=== PATIENT | male | born 1970 ===

== ENCOUNTER 2017-02-10 17:38 | Emergency (ER) | payer OTHER ==
[2017-02-10] MEDS ORDERED: Albuterol-Ipratrop 3 mg / 0.5 (3 ml) UD INH STA (18:07)
[2017-02-10] MEDS ORDERED: Albuterol-Ipratrop 3 mg / 0.5 (3 ml) UD ONE (18:10)
--- NOTE | 2017-02-10 19:02 | ED PDOC ---
HPI: CCC, URI, Sore Throat Time Seen by Provider: 02/10/17 17:50 Chief Complaint (Nursing): Shortness Of Breath Chief Complaint (Provider): Cough History Per: Patient History/Exam Limitations: no limitations Onset/Duration Of Symptoms: Days (x2) Current Symptoms Are (Timing): Still Present Associated Symptoms: Cough, Sputum (white; no hemoptysis), Other (sweats, shortness of breath (today); no chest pain, leg swelling). denies: Fever, Chills, Sore Throat, Sinus Drainage Severity: Moderate Additional Complaint(s): Fausto Russell is a 46 year old male, with a past medical history inclusive of pneumonia (4 years ago) and intermittent episodes of bronchitis, who presents to the ED on 02/10/17 for the evaluation of a moderate cough, productive of white sputum, that he has experienced over the past 2 days. Associated shortness of breath (today) and sweats also reported, though he denies fever, chills, rhinorrhea, sore throat, chest pain, leg swelling, known sick contacts or recent travel. Has used mucinex with only transient relief (yesterday, none today). Of note, patient reports having experienced a similar array of symptoms 1 year ago, at which time he had been prescribed albuterol. He had attempted to use the pump prescribed at that time today, but is not sure if there was any medication left in the device. Pertinent familial history includes unspecified pulmonary disease (mother, ). PMD: none Past Medical History Reviewed: Historical Data, Nursing Documentation, Vital Signs Vital Signs: Last Vital Signs Temp 98.4 F 02/10/17 19:35 Pulse 86 02/10/17 19:47 Resp 18 02/10/17 19:47 BP 149/99 H 02/10/17 19:47 Pulse Ox 99 02/10/17 19:47 - Medical History PMH: Asthma, Bronchitis, Pneumonia (4 years ago) - Surgical History Surgical History: Hernia Repair (childhood) - Family History Family History: States: Other - Social History Ex-Smoker (has not smoked in the last 12 months): Yes (>10 years ago) Alcohol: None Drugs: Denies - Immunization History Hx Tetanus Toxoid Vaccination: No Hx Influenza Vaccination: No Hx Pneumococcal Vaccination: No - Home Medications Home Medications: Ambulatory Orders Medication Instructions Recorded Albuterol Sulfate [Proair Hfa] 200 puff IH Q6 PRN 12/20/16 Cephalexin [cephalexin] 500 mg PO QID #40 cap 12/20/16 Sulfamethoxazole/Trimethoprim 2 tab PO Q12H #40 tab 12/20/16 [Bactrim DS 800 mg-160 mg] Triamcinolone 0.1% [Triamcinolone 1 unit TP BID #1 tube 12/20/16 0.1% Cream] Albuterol HFA [Ventolin HFA 90 2 puff IH Q4H PRN #1 inh 02/10/17 mcg/actuation (8 g)] Azithromycin [Zithromax] 250 mg PO DAILY #6 dose 02/10/17 Prednisone 50 mg PO DAILY #4 tablet 02/10/17 - Allergies Allergies/Adverse Reactions: Allergies Allergy/AdvReac Type Severity Reaction Status Date / Time No Known Allergies Allergy Verified 12/20/16 09:50 Review of Systems ROS Statement: Except As Marked, All Systems Reviewed And Found Negative Constitutional: Positive for: Sweats. Negative for: Fever, Chills ENT: Negative for: Nose Discharge, Throat Pain Cardiovascular: Negative for: Chest Pain, Edema Respiratory: Positive for: Cough, Shortness of Breath, Sputum (white). Negative for: Hemoptysis Physical Exam - Reviewed Nursing Documentation Reviewed: Yes Vital Signs Reviewed: Yes - Physical Exam Appears: Positive for: Non-toxic, No Acute Distress Head Exam: Positive for: ATRAUMATIC, NORMOCEPHALIC Skin: Positive for: Normal Color, Warm, Dry Eye Exam: Positive for: Normal appearance, PERRL ENT: Positive for: Normal ENT Inspection. Negative for: Pharyngeal Erythema, Tonsillar Exudate, Tonsillar Swelling Cardiovascular/Chest: Positive for: Regular Rate, Rhythm. Negative for: Murmur Respiratory: Positive for: Wheezing (diffuse expiratory). Negative for: Rales, Rhonchi, Respiratory Distress Gastrointestinal/Abdominal: Positive for: Normal Exam, Soft. Negative for: Tenderness Back: Positive for: Normal Inspection Extremity: Positive for: Normal ROM. Negative for: Swelling Neurologic/Psych: Positive for: Alert, Oriented - ECG O2 Sat by Pulse Oximetry: 95 (RA) Pulse Ox Interpretation: Normal Medical Decision Making Medical Decision Makin:50 Initial Impression: cough Differential diagnoses include but are not limited to asthma exacerbation, bronchitis, pneumonia Initial Plan: * CXR * Solu-Medrol 125mg IM * Duonebs 9ml INH * Peak Flow Pre/Post Treatment * Reevaluation 20:00 CXR unremarkable Pt stable Scribe Attestation: Documented by Migdalia Campos, acting as a scribe for Alison Dhaliwal MD. Provider Scribe Attestation: All medical record entries made by the Scribe were at my direction and personally dictated by me. I have reviewed the chart and agree that the record accurately reflects my personal performance of the history, physical exam, medical decision making, and the department course for this patient. I have also personally directed, reviewed, and agree with the discharge instructions and disposition. Disposition - Clinical Impression Clinical Impression: Bronchitis - Disposition Referrals: [facility] [Outside] [facility] [Outside] Disposition: Routine/Home Disposition Time: 20:00 Condition: IMPROVED Prescriptions: Albuterol HFA [Ventolin HFA 90 mcg/actuation (8 g)] 2 puff IH Q4H PRN #1 inh PRN Reason: ASTHMA Azithromycin [Zithromax] 250 mg PO DAILY #6 dose Prednisone 50 mg PO DAILY #4 tablet Instructions: Acute Bronchitis (ED) Forms: [facility] ED School/Work Excuse
[2017-02-10 19:35] VITALS: PULSE 86; TEMP 98.4
[2017-02-10 19:48] VITALS: BP 149/99; RESP 18
--- NOTE | 2017-02-11 11:07 | RAD ---
HISTORY: sob cough COMPARISON: Chest x-ray performed 07/09/16. TECHNIQUE: Chest PA and lateral FINDINGS: Examination limited by habitus. LUNGS: No focal consolidation. Please note that chest x-ray has limited sensitivity for the detection of pulmonary masses. PLEURA: No significant pleural effusion identified. No definite pneumothorax . CARDIOVASCULAR: The cardiomediastinal silhouette appears within normal limits of size. OSSEOUS STRUCTURES: No acute osseous abnormality identified. VISUALIZED UPPER ABDOMEN: Unremarkable. OTHER FINDINGS: None. IMPRESSION: No focal consolidation, significant pleural effusion, or definite pneumothorax identified.
[2017-02-11 14:35] VITALS: O2SAT 95
== END 2017-02-10 20:33 | disposition home or self-care (01) ==
LOC: H.ER 17:38
DX: J20.9 Acute bronchitis, unspecified (principal); Z87.891 Personal history of nicotine dependence